=== PATIENT | female | born 1940 | race Caucasian/White ===

== ENCOUNTER 2019-05-12 09:58 | Emergency (ER) | payer OTHER ==
[~2019-05-12 09:58] MED LIST: ASCO1TAB40 PO; CALC-483 PO; CHOL20004 PO; LEVO50TA4 PO; SIMV10TA6 PO
[2019-05-12] MEDS ORDERED: NAPROXEN 500 MG TABLET ONE (10:42)
== END 2019-05-12 10:48 | disposition home or self-care (01) ==
LOC: EDH 09:58
DX: M25.561 Pain in right knee (principal); M25.562 Pain in left knee; Z95.1 Presence of aortocoronary bypass graft; Z88.1 Allergy status to other antibiotic agents; Z88.2 Allergy status to sulfonamides; Z88.5 Allergy status to narcotic agent; Z88.7 Allergy status to serum and vaccine

== ENCOUNTER → 2019-06-05 | Outpatient (CLI) | payer OTHER ==
[2019-06-05 16:14] LABS: BASOPHILS % (AUTO) 0.6 % (0.0-5.0); EOSINOPHILS % (AUTO) 3.5 % (0.0-8.0); HEMATOCRIT 37.9 % (36-48); LYMPHOCYTES % (AUTO) 29.8 % (21.0-51.0); MEAN CORPUSCULAR HEMOGLOBIN 30.7 pg (27.0-33.0); MEAN CORPUSCULAR HGB CONC 33.8 g/dL (32.0-36.0); MONOCYTES % (AUTO) 8.8 % (3.0-13.0); NEUTROPHILS % (AUTO) 57.3 % (40.0-77.0); PLATELET COUNT (AUTO) 299 K/uL (130-400); RED BLOOD CELL COUNT(AUTO) 4.17 MIL/uL (4.00-5.50); RED CELL DISTRIBUTION WIDTH 13.8 % (11.0-15.5); WHITE BLOOD COUNT (AUTO) 9.7 K/uL (4.8-10.8)
== END | disposition home or self-care (01) ==
LOC: LAB 15:21
PROVIDERS: ATTEND Internal Medicine Cardiovascular Disease
DX: I10 Essential (primary) hypertension (principal)
CPT/HCPCS: 36415; 82270; 85025

== ENCOUNTER → 2019-09-05 | Outpatient (CLI) | payer OTHER ==
[~2019-09-05] MED LIST changes: -SIMV10TA6 PO; +SIMV10TA97 PO
[2019-09-05 08:57] LABS: THYROID STIMULATING HORMONE 0.49 uIU/mL (0.36-3.74)
== END | disposition home or self-care (01) ==
LOC: LAB 09-04 10:06
PROVIDERS: ATTEND Student in an Organized Health Care Education/Training Program
DX: G30.9 Alzheimer's disease, unspecified (principal)
CPT/HCPCS: 36415; 82607; 82746; 84443

== ENCOUNTER 2019-10-13 10:52 | Observation (INO) | payer OTHER ==
[~2019-10-13] VITALS: Ht 162.6 cm; Wt 55.2 kg
[2019-10-13] MEDS ORDERED: AZITHROMYCIN 500MG+NS 250ML 250 ML IV ONE (11:24)
[2019-10-13] MEDS ORDERED: CEFTRIAXONE SODIUM 1 GM ONE (11:24)
[2019-10-13] MEDS ORDERED: IPRATROPIUM/ALBUTEROL SULFATE 3 ML SOLUTION IH ONE (11:45)
[2019-10-13 11:46] LABS: BASOPHILS % (AUTO) 0.5 % (0.0-5.0); EOSINOPHILS % (AUTO) 0.7 % (0.0-8.0); HEMATOCRIT 38.8 % (36-48); MEAN CORPUSCULAR HEMOGLOBIN 29.1 pg (27.0-33.0); MEAN CORPUSCULAR HGB CONC 33.5 g/dL (32.0-36.0); MEAN CORPUSCULAR VOLUME 86.8 fL (79-99); MONOCYTES % (AUTO) 11.7 % (3.0-13.0); NEUTROPHILS % (AUTO) 44.6 % (40.0-77.0); PLATELET COUNT (AUTO) 165 K/uL (130-400); RED BLOOD CELL COUNT(AUTO) 4.47 MIL/uL (4.00-5.50); RED CELL DISTRIBUTION WIDTH 13.2 % (11.0-15.5); WHITE BLOOD COUNT (AUTO) 6.2 K/uL (4.8-10.8)
[2019-10-13 11:56] LABS: CREATININE 1.5 mg/dL (0.5-1.5); POTASSIUM 4.2 mmol/L (3.5-5.1)
[2019-10-13 12:02] LABS: ALBUMIN 3.5 g/dL (3.5-5.0); BILIRUBIN,TOTAL 0.5 mg/dL (0.2-1.0); TOTAL PROTEIN, SERUM 7.2 g/dL (6.0-8.3)
[2019-10-13 12:03] LABS: PARTIAL THROMBOPLASTIN TIME 29.8 SEC (26.3-35.5); PROTHROMBIN TIME 10.5 SEC (9.6-11.6)
[2019-10-13 12:12] LABS: B-TYPE NATRIURETIC PEPTIDE 120 pg/mL (0-100)
[2019-10-13] MEDS ORDERED: SODIUM CHLORIDE 0.9% 500ML 500 ML IV ONE (12:27)
[2019-10-13] MEDS ORDERED: DEXTROSE 50%-WATER 25 GM/50 ML VIAL ONE (12:32)
[2019-10-13] MEDS ORDERED: IOHEXOL-350 75 ML VIAL IV ONE (12:39)
[2019-10-13] MEDS ORDERED: SODIUM CHLORIDE 0.9% 1000ML 1,000 ML IV ONE (15:22)
[2019-10-13] MEDS ORDERED: POTASSIUM CHLORIDE 20MEQ/100ML 100 ML IV PRN (17:00)
[2019-10-13] MEDS ORDERED: POTASSIUM CHLORIDE 10% ELIXIR 20 MEQ/15 ML UDCUP PO PRN (17:00)
[2019-10-13] MEDS ORDERED: LIDOCAINE HCL-MPF 1% 2ML VIAL IJ PRN (17:00)
[2019-10-13] MEDS ORDERED: POTASSIUM CHLORIDE 20 MEQ ERTAB PO PRN (17:00)
[2019-10-13] MEDS ORDERED: ACETAMINOPHEN 325 MG TAB PO PRN (17:15)
[2019-10-13] MEDS ORDERED: LACTULOSE 20 GM/30 ML UDCUP PO PRN (17:15)
[2019-10-13] MEDS ORDERED: ALPRAZOLAM 0.5 MG TABLET PO PRN (17:15)
[2019-10-13] MEDS ORDERED: METOCLOPRAMIDE 10 MG/2 ML VIAL IVP PRN (17:15)
[2019-10-13] MEDS ORDERED: IPRATROPIUM/ALBUTEROL SULFATE 3 ML SOLUTION IH PRN (17:15)
[2019-10-13] MEDS ORDERED: ZOLPIDEM TARTRATE 5 MG TAB PO PRN (17:15)
[2019-10-13] MEDS ORDERED: DOCUSATE SODIUM 100 MG CAP PO PRN (17:15)
[2019-10-13] MEDS ORDERED: HYDRALAZINE HCL 20 MG/ML VIAL IV PRN (17:15)
[2019-10-13] MEDS ORDERED: ONDANSETRON HCL 4 MG/2 ML VIAL IVP PRN (17:15)
[2019-10-13] MEDS ORDERED: APIX5TAB PO (20:28)
[2019-10-13] MEDS: SIMVASTATIN 10 MG TABLET PO SCH (21:00)
[2019-10-13] MEDS: CALCIUM 600 + VITAMIN D 400 TABLET PO SCH (21:00)
[2019-10-13] MEDS: APIXABAN 5 MG TABLET PO SCH (21:00)
--- NOTE | 2019-10-14 05:01 | NUR ---
REPORT RECEIVED FROM ARIE NOBLE
[2019-10-14 05:25] VITALS: BP 130/66
[2019-10-14] MEDS ORDERED: LOPERAMIDE HCL 2 MG CAP PO ONE (05:54)
--- NOTE | 2019-10-14 06:10 | NUR ---
PT HAVING LOOSE BM'S. BRIEF PROVIDED.STATES STARTED LAST NIGHT IN THE ER. PT AMBULATORY. NO DISTRESS NOTED. NO DEFICITS NOTED. PT IS AA03. PERRLA. MINIMAL WEAKNESS NOTED. GIVEN REGLAN AND ALSO ONE DOSE OF LOPERAMIDE.
[2019-10-14] MEDS: LEVOTHYROXINE 50 MCG TABLET PO SCH (06:12)
--- NOTE | 2019-10-14 06:20 | NUR ---
DR. CALLE SPEAKING TO PT. STATED WOULD START PT ON ASPIRIN.
[2019-10-14 07:00] VITALS: BP 140/82
--- NOTE | 2019-10-14 08:00 | NUR ---
ASSESSMENT PT IS AAOX3 DENIES CP DENIES SOB DENIES NV NO COMPLAINTS SITTING UPRIGHT IN BED. NO NEURO DEFICITS NOTED. SPEECH EVAL TO BE DONE TODAY. PENDING ECHO AND PENDING CAROTIDS. CALL LIGHT WITHIN REACH.
[2019-10-14] MEDS: CHOLECALCIFEROL 2000 UNIT PO SCH (08:02)
[2019-10-14] MEDS: APIXABAN 5 MG TABLET PO SCH ×2 (08:03→19:33)
[2019-10-14] MEDS: PANTOPRAZOLE SODIUM 40 MG TABLET.DR PO SCH (08:04)
[2019-10-14] MEDS: ASPIRIN 81MG TAB.CHEW PO SCH (08:04)
[2019-10-14] MEDS: CALCIUM 600 + VITAMIN D 400 TABLET PO SCH ×2 (08:04→19:33)
[2019-10-14] MEDS: ASCORBIC ACID 500 MG TAB PO SCH (08:04)
--- NOTE | 2019-10-14 08:30 | NUR ---
DYSPHAGIA EVAL COMPLETE. -S/S OF ASPIRATION. RECOMMEND REGULAR, THIN LIQUID DIET; PILLS WHOLE WITH LIQUIDS. Addendum: 10/14/19 at 0856 by CHING SAXENA, [facility] Amended: Links added.
--- NOTE | 2019-10-14 08:45 | NUR ---
COGNITIVE EVAL COMPLETE. COGNITIVE-LINGUISTIC ABILITIES WITHIN FUNCTIONAL LIMITS. EVALUATION: Pt AAOX3. Pt REQUESTS WANTS AND NEEDS INDEPENDENTLY. Pt INTELLIGIBLE AT 100% ACCURACY TO THE UNFAMILIAR LISTENER. Pt COMMUNICATING AT CONVERSATIONAL LEVEL WITH NO DEFICITS IDENTIFIED AT THIS TIME. Pt COMPLETED COGNITIVE-LINGUISTIC EVALUATION TARGETING: ORIENTATION, ATTENTION/CONCENTRATION, MEMORY (IMMEDIATE, SHORT-TERM AND LONG-TERM), PROBLEM SOLVING, LOGIC/REASONING/INFERENCE, THOUGHT ORGANIZATION, FUNCTIONAL MATH AND TELLING TIME. Pt ABLE TO COMPLETE TASKS WITH CORRECT AND TIMELY ANSWERS TO ALL SECTIONS. G-CODES SPOKEN LANGUAGE EXPRESSION: [id number] Addendum: 10/14/19 at 0907 by CHING SAXENA [facility] Amended: Links added.
[2019-10-14] MEDS ORDERED: ASPIRIN 325 MG TABLET PO SCH (09:00)
[2019-10-14 11:00] VITALS: BP 109/60
--- NOTE | 2019-10-14 14:00 | NUR ---
MD LOVE THOMPSON AND GENE JIMÉNEZ ROUNDING, PENDING 2D ECHO.
--- NOTE | 2019-10-14 14:45 | NUR ---
Initial Assessment SW met with patient. Patient lives alone. No home services. DME: [facility]. Patient is independent and drives. PCP is Vitor SOLANO. Pharmacy is [facility] located in [place]. DCP is home Addendum: 10/14/19 at 1447 by KRYSTEN BENOIT SS Amended: Links added.
[2019-10-14 15:30] VITALS: BP 98/71
--- NOTE | 2019-10-14 16:40 | NUR ---
PATIENT 2D ECHO DONE TECH STATES THERE IS A POTENTIAL CLOT, GENE RAYMOND MADE AWARE. DC ORDERS CANCELLED, PENDING CARDIOLOGY FOR OFFICIAL RESULTS PATIENT IS ADAMANT TO GO HOME, REFUSES TO STAY, FRIENDS ARE AT BEDSIDE CONVINCING HER TO STAY. PATIENT REFUSES TO STAY AT THIS POINT.
--- NOTE | 2019-10-14 16:53 | NUR ---
PATIENT AGREES TO STAY FRIENDS ARE AT BEDSIDE,
[2019-10-14] MEDS: SIMVASTATIN 10 MG TABLET PO SCH (19:33)
[2019-10-14 20:11] VITALS: BP 146/78
--- NOTE | 2019-10-14 21:00 | NUR ---
PT AWAKE, ALERT. STATES WILL STAY AND WILL BE PENDING TO SEE DR. CALLE IN THE AM. PENDING ECHO RESULTS.
[2019-10-15] VITALS: BP 138/72
--- NOTE | 2019-10-15 02:50 | NUR ---
INCREASED CONFUSION NOTED. PT CALLING FRIENDS TO PICK HER UP. REDIRECTED AND REORIENTED PT. ENCOURAGED HER TO REST. SHE HAS NOT SLEPT WELL IN 2 DAYS. PT STATES SHE FEELS FINE, SHE IS WORRIED ABOUT A POSSIBLE PROCEDURE. REASSURED, AND IN BED. WILL ATTEMPT TO SLEEP. NOT AWARE OF TIME. AWARE OF NAME, AND LOCATION.
[2019-10-15 04:18] VITALS: BP 127/69
[2019-10-15 04:18] LABS: HEMATOCRIT 35.4 % (36-48); MEAN CORPUSCULAR HEMOGLOBIN 29.2 pg (27.0-33.0); MEAN CORPUSCULAR HGB CONC 32.8 g/dL (32.0-36.0); MEAN CORPUSCULAR VOLUME 89.2 fL (79-99); PLATELET COUNT (AUTO) 136 K/uL (130-400); RED BLOOD CELL COUNT(AUTO) 3.97 MIL/uL (4.00-5.50); RED CELL DISTRIBUTION WIDTH 13.5 % (11.0-15.5); WHITE BLOOD COUNT (AUTO) 5.7 K/uL (4.8-10.8)
[2019-10-15 04:42] LABS: CREATININE 0.8 mg/dL (0.5-1.5); POTASSIUM 3.7 mmol/L (3.5-5.1)
[2019-10-15 05:17] LABS: BAND NEUTROPHILS % (MANUAL) 2 % (0-2); BASOPHILS % (MANUAL) 1 % (0-2); EOSINOPHILS % (MANUAL) 1 % (1-6); LYMPHOCYTES % (MANUAL) 56 % (22-44); MONOCYTES % (MANUAL) 5 % (2-9); REACTIVE LYMPHOCYTES 6 % (0-0); SEGMENTED NEUTROPHILS % 29 % (40-70)
[2019-10-15 05:19] LABS: MAN.DIFF COMMENT-IMPRESSION MANUAL DIFFERENTIAL
[2019-10-15 05:20] LABS: PLATELET MORPHOLOGY COMMENT ADEQUATE
[2019-10-15] MEDS: LEVOTHYROXINE 50 MCG TABLET PO SCH (06:11)
[2019-10-15] MEDS ORDERED: ASPI-1005 PO (07:15)
[2019-10-15 07:58] VITALS: BP 135/76
--- NOTE | 2019-10-15 08:00 | NUR ---
Assessed patient at this time.No distress noted. Patient is orient to person only. Spoke with daughter Jhoana over the phone, she stated that patient is has a baseline of confusion and has dementia.
[2019-10-15] MEDS: CHOLECALCIFEROL 2000 UNIT PO SCH (09:00)
[2019-10-15] MEDS: APIXABAN 5 MG TABLET PO SCH (10:52)
[2019-10-15] MEDS: PANTOPRAZOLE SODIUM 40 MG TABLET.DR PO SCH (10:52)
[2019-10-15] MEDS: ASCORBIC ACID 500 MG TAB PO SCH (10:53)
[2019-10-15] MEDS: ASPIRIN 81MG TAB.CHEW PO SCH (10:53)
[2019-10-15] MEDS: CALCIUM 600 + VITAMIN D 400 TABLET PO SCH (10:53)
[2019-10-15 11:52] VITALS: BP 140/70
--- NOTE | 2019-10-15 13:00 | NUR ---
Patient discharged at this time. Patient education given to patient and family friend. Patient discharged home with family friend with knowledge of son and daughter. Addendum: 10/15/19 at 1900 by FRANSISCA RAMIREZ RN RN IV Discontinued
== END 2019-10-15 13:26 | disposition home or self-care (01) ==
LOC: EDH 10:52 → EDHIP 15:20 → 2DH 10-14 05:01
PROVIDERS: ADMIT Internal Medicine; ATTEND Internal Medicine
DX: G45.9 Transient cerebral ischemic attack, unspecified (principal); I48.0 Paroxysmal atrial fibrillation; R47.01 Aphasia; I10 Essential (primary) hypertension; E78.5 Hyperlipidemia, unspecified; E03.9 Hypothyroidism, unspecified; I34.1 Nonrheumatic mitral (valve) prolapse; I34.0 Nonrheumatic mitral (valve) insufficiency; Z95.3 Presence of xenogenic heart valve; Z86.73 Personal history of transient ischemic attack (TIA), and cerebral infarction without residual deficits; Z79.01 Long term (current) use of anticoagulants; Z79.82 Long term (current) use of aspirin; Z79.890 Hormone replacement therapy; Z79.899 Other long term (current) drug therapy; Z88.0 Allergy status to penicillin; Z88.2 Allergy status to sulfonamides; Z88.7 Allergy status to serum and vaccine
CPT/HCPCS: 36415 ×2; 70450; 70496; 70498; 71045; 80048; 80053; 82150; 82550; 82948; 83605 ×2; 83690; 83721; 83880; 84484; 85025 ×2; 85610; 85730; 87040 ×2; 87804 ×2; 92522; 92610; 93005; 93306; 93880; 94640; 94664; 96374; 97039; 97116 ×2; 97161; 99291; G0378 ×30; G8978; G8979; G8980; G8981; G8982; G8983; J0456; J0696; J2765; J7030; J7040; J7070; Q9967